=== PATIENT | female | born 1980 ===

== ENCOUNTER 2024-08-03 07:45 | Inpatient (IN) | payer OTHER ==
[~2024-08-03] VITALS: Ht 152.4 cm; Wt 47.6 kg
[2024-08-03] MEDS ORDERED: MULTI VITAMIN1 EACH PO (08:35)
[2024-08-03] MEDS ORDERED: IRON325 MG PO (08:35)
[2024-08-03 08:38] VITALS: BP 125/75
[2024-08-03 09:43] LABS: BASO % 0.5 % (0.1-1.2); EOS # 0.05 (0.04-0.54); EOS % 0.9 % (0.7-7.0); HEMATOCRIT 37.4 % (34.1-44.9); HEMOGLOBIN 12.3 g/dL (11.2-15.7); LYMPH # 1.41 (1.18-3.74); MEAN CORPUSCULAR HEMOGLOBIN 28.9 pg (25.6-32.2); MONO # 0.35 (0.24-0.82); MONO % 6.2 % (4.7-12.5); NEUT # 3.79 (1.56-6.13); NEUT % 67.2 % (34.0-71.1); PLATELET COUNT 247 K/uL (163-369); RED BLOOD COUNT 4.26 M/uL (3.93-5.22); RED CELL DISTRIBUTION WIDTH 15.9 % (11.6-14.4)
[2024-08-03 10:14] LABS: ALBUMIN 4.2 gm/dL (3.4-5.0); BILIRUBIN TOTAL 1.05 mg/dL (0.3-1.2); CALCIUM 9.4 mg/dL (8.5-10.1); CREATININE SERUM 0.67 mg/dL (0.55-1.02); GFR 95.61; GLOBULINA 2.9 G/DL (2.4-3.5); POTASSIUM 4.48 mEq/L (3.5-5.1); TOTAL PROTEIN 7.1 gm/dL (6.4-8.2)
[2024-08-03 10:23] LABS: INR 1.03; PARTIAL THROMBOPLASTIN TIME 26.2 SECONDS (22.0-34.0); PROTHROMBIN TIME 11.2 SECONDS (9.0-11.5)
[2024-08-09] MEDS ORDERED: CLINDAMYCIN PHOSPHATE 150 MG/ML (600mg) ONE (08:00)
[2024-08-09] MEDS ORDERED: GENTAMICIN SULFATE 40 MG/ML VIAL ONE ×2 (08:01→22:09)
[2024-08-09] MEDS ORDERED: POVIDONE-IODINE 118 ML BOTT TOP ONE (08:45)
[2024-08-09] MEDS ORDERED: MORPHINE SULFATE 4 MG/ML VIAL IV ONE ×3 (11:35→16:30)
[2024-08-09] MEDS ORDERED: KETOROLAC TROMETHAMINE 30 MG VIAL ONE (12:34)
[2024-08-09] MEDS ORDERED: KETOROLAC TROMETHAMINE 30 MG VIAL IM ONE (12:35)
[2024-08-09] MEDS ORDERED: PROMETHAZINE HCL 25 MG/ML AMPUL IM SCH (13:00)
[2024-08-09] MEDS ORDERED: RINGERS SOLUTION,LACTATED 1,000 ML IV PUSH SCH (13:15)
[2024-08-09] MEDS ORDERED: KETOROLAC TROMETHAMINE 30 MG VIAL IM NR (13:15)
[2024-08-09] MEDS ORDERED: ONDANSETRON HCL 2 MG/ML VIAL IV PRN (13:15)
[2024-08-09] MEDS ORDERED: SIMETHICONE 125 MG PO SCH (17:00)
[2024-08-09] MEDS ORDERED: KETOROLAC TROMETHAMINE 10 MG TABLET PO SCH (18:00)
[2024-08-09] MEDS ORDERED: SIMETHICONE 125 MG CAPSULE PO ONE (18:14)
[2024-08-09] MEDS ORDERED: KETOROLAC TROMETHAMINE 10 MG TABLET PO ONE (18:14)
[2024-08-09 18:59] LABS: BASO % 0.1 % (0.1-1.2); HEMATOCRIT 34.1 % (34.1-44.9); HEMOGLOBIN 11.5 g/dL (11.2-15.7); LYMPH # 0.32 (1.18-3.74); LYMPH % 2.3 % (19.3-53.1); MEAN CORPUSCULAR HEMOGLOBIN 29.2 pg (25.6-32.2); MONO # 0.38 (0.24-0.82); MONO % 2.7 % (4.7-12.5); NEUT # 13.12 (1.56-6.13); NEUT % 94.6 % (34.0-71.1); PLATELET COUNT 228 K/uL (163-369); RED BLOOD COUNT 3.94 M/uL (3.93-5.22); RED CELL DISTRIBUTION WIDTH 14.8 % (11.6-14.4)
[2024-08-09] MEDS ORDERED: FAMOTIDINE/PF 20 MG/2 ML VIAL IV SCH (21:00)
[2024-08-09] MEDS ORDERED: CLINDAMYCIN PHOSPHATE 150 MG/ML (900mg) IV SCH (21:00)
[2024-08-09] MEDS ORDERED: GENTAMICIN SULFATE 40 MG/ML VIAL IV SCH (21:00)
[2024-08-09] MEDS ORDERED: CLINDAMYCIN PHOSPHATE 150 MG/ML (900mg) ONE (22:09)
[2024-08-10] VITALS: BP 116/68
[2024-08-10 06:44] LABS: BASO % 0.1 % (0.1-1.2); EOS # 0.01 (0.04-0.54); EOS % 0.1 % (0.7-7.0); HEMATOCRIT 33.5 % (34.1-44.9); HEMOGLOBIN 11.1 g/dL (11.2-15.7); LYMPH # 0.87 (1.18-3.74); LYMPH % 8.8 % (19.3-53.1); MEAN CORPUSCULAR HEMOGLOBIN 29.1 pg (25.6-32.2); MONO # 0.78 (0.24-0.82); MONO % 7.9 % (4.7-12.5); NEUT # 8.23 (1.56-6.13); NEUT % 82.8 % (34.0-71.1); PLATELET COUNT 215 K/uL (163-369); RED BLOOD COUNT 3.82 M/uL (3.93-5.22); RED CELL DISTRIBUTION WIDTH 15.1 % (11.6-14.4)
[2024-08-10 09:00] VITALS: BP 120/58
[2024-08-10] MEDS ORDERED: ACETAMINOPHEN WITH CODEINE 1 UDTAB TABLET PO SCH (09:00)
[2024-08-10 13:36] VITALS: BP 113/73
[2024-08-10 16:11] VITALS: BP 110/63
[2024-08-10] MEDS ORDERED: FAMOtidine 20 MG TABLET PO SCH (20:27)
[2024-08-11 00:41] VITALS: BP 105/67
[2024-08-11] MEDS ORDERED: ACETAMINOPHEN-1 EAC2 PO (07:34)
[2024-08-11] MEDS ORDERED: KETO10TA2 PO (07:34)
[2024-08-11 08:00] VITALS: BP 99/65
== END 2024-08-11 10:34 | disposition home or self-care (01) | DRG 743 ==
LOC: O/R 08-09 06:04 → SURH 08-09 07:45 → OB/GYN 08-09 15:51
PROVIDERS: ADMIT Obstetrics & Gynecology Maternal & Fetal Medicine; ATTEND Obstetrics & Gynecology Maternal & Fetal Medicine
PROC: 0UT70ZZ Resection of Bilateral Fallopian Tubes, Open Approach (ICD-10-PCS; 2024-08-09)
PROC: 0UT90ZZ Resection of Uterus, Open Approach (ICD-10-PCS; principal; 2024-08-09 08:30)
DX: D25.1 Intramural leiomyoma of uterus (principal); D25.0 Submucous leiomyoma of uterus; N72 Inflammatory disease of cervix uteri

== ENCOUNTER 2024-08-03 11:47 | Outpatient (CLI) | payer OTHER ==
[~2024-08-03 11:47] MED LIST: IRON325 MG PO; MULTI VITAMIN1 EACH PO
== END 2024-08-03 11:53 | disposition home or self-care (01) ==
LOC: RAD 11:47
PROVIDERS: ATTEND Internal Medicine
DX: R05.9 Cough, unspecified (principal); Z01.818 Encounter for other preprocedural examination